=== PATIENT | female | born 1995 | race Caucasian/White ===

== ENCOUNTER 2022-01-21 17:11 | Emergency (ER) | payer MEDICAID, OTHER, SELFPAY ==
[2022-01-21 18:28] LABS: #Eosinphils 0.4 thou/uL (0.0-0.7); #Monocytes 0.4 thou/uL (0.11-0.59); #Neutrophils 3.1 thou/uL (1.40-6.50); %Basophils 0.6 % (0.0-1.0); %Eosinophils 7.5 % (0.0-10.0); %Lymphocytes 33.6 % (21.0-51.0); %Neutrophils 52.2 % (42.0-75.0); Hemoglobin 13.6 g/dL (12.0-16.0); Mean Corpuscular HGB CONC 33.1 g/dL (32.0-36.0); Mean Corpuscular Hemoglobin 28.7 pg (27.0-31.0); Mean Corpuscular Volume 86.8 fL (78.0-98.0); Mean Platelet Volume 8.7 fL (7.4-10.4); Platelet Count 216 thou/uL (130-400); RBC Distribution Width 12.7 % (11.5-14.5); Red Blood Cell (RBC) Count 4.73 mill/uL (4.20-5.40); White Blood Cell (WBC) Count 5.9 thou/uL (4.8-10.8)
[2022-01-21 18:38] LABS: BHCG - Serum Negative (NEGATIVE); Pregs Control Background? CLEAR/WHITE (CLR/WHITE); Pregs Control Bar Appear? YES (CONTROL BAR)
[2022-01-21 18:50] LABS: ALT (SGPT) 9 U/L (8-55); AST (SGOT) 14 U/L (5-34); Albumin 3.9 g/dL (3.5-5.0); Alkaline Phosphatase 104 U/L (40-110); Anion Gap 12 mmol/L (10-20); BUN (Urea Nitrogen) 9 mg/dL (7.0-18.7); Bilirubin, Total 0.2 mg/dL (0.2-1.2); Calc. Creatinine Clearance 0 mL/min (70-130); Calcium 8.7 mg/dL (7.8-10.44); Carbon Dioxide 24 mmol/L (22-29); Chloride 107 mmol/L (98-107); Globulin 2.6 g/dL (2.4-3.5); Glucose 88 mg/dL (70-105); Potassium 3.7 mmol/L (3.5-5.1); Protein, Total 6.5 g/dL (6.0-8.3); Sodium 139 mmol/L (136-145)
[2022-01-21 18:51] LABS: Acetaminophen Less than 10.0 mcg/mL (10.0-30.0); Alcohol Less than 10 mg/dL (Less than 10); CK (CPK) 187 U/L (29-168); Salicylate Less than 8.0 mg/dL (15.0-30.0)
[2022-01-21] MEDS ORDERED: Ketorolac Tromethamine 30 MG/ML VIAL ONE (19:32)
== END 2022-01-21 19:47 | disposition home or self-care (01) ==
LOC: ERS 17:11
DX: R51.9 Headache, unspecified (principal); R42 Dizziness and giddiness
CPT/HCPCS: 36415; 70450; 80053; 80307; 82550; 83605; 84703; 85025; 96374; J1885

== ENCOUNTER 2022-01-23 22:10 | Inpatient (IN) | payer OTHER ==
[2022-01-24 02:18] VITALS: BMI 29.7
[2022-01-24] MEDS ORDERED: Ondansetron PF 4 MG/2 ML Vial IVP PRN (02:52)
[2022-01-24] MEDS ORDERED: Ondansetron ODT 4 MG TAB PO PRN (02:52)
[2022-01-24] MEDS ORDERED: Acetaminophen 650 MG Suppository PR PRN (02:52)
[2022-01-24 05:55] LABS: #Basophils 0.1 thou/uL (0.0-0.2); #Eosinphils 0.4 thou/uL (0.0-0.7); #Lymphocytes 2.4 thou/uL (1.20-3.40); #Monocytes 0.4 thou/uL (0.11-0.59); #Neutrophils 2.2 thou/uL (1.40-6.50); %Eosinophils 8.1 % (0.0-10.0); %Lymphocytes 43.7 % (21.0-51.0); %Monocytes 6.9 % (0.0-10.0); %Neutrophils 40.3 % (42.0-75.0); Hemoglobin 14.1 g/dL (12.0-16.0); Mean Corpuscular HGB CONC 33.8 g/dL (32.0-36.0); Mean Corpuscular Hemoglobin 29.6 pg (27.0-31.0); Mean Corpuscular Volume 87.6 fL (78.0-98.0); Mean Platelet Volume 8.5 fL (7.4-10.4); Platelet Count 252 thou/uL (130-400); RBC Distribution Width 12.8 % (11.5-14.5); Red Blood Cell (RBC) Count 4.76 mill/uL (4.20-5.40); White Blood Cell (WBC) Count 5.6 thou/uL (4.8-10.8)
[2022-01-24 06:16] LABS: Anion Gap 10 mmol/L (10-20); BUN (Urea Nitrogen) 14 mg/dL (7.0-18.7); Calc. Creatinine Clearance 151 mL/min (70-130); Calcium 8.8 mg/dL (7.8-10.44); Carbon Dioxide 23 mmol/L (22-29); Chloride 105 mmol/L (98-107); Glucose 83 mg/dL (70-105); Potassium 3.7 mmol/L (3.5-5.1); Sodium 134 mmol/L (136-145)
[2022-01-24] MEDS: lamoTRIgine 25 MG TAB PO SCH (09:06)
[2022-01-24] MEDS: Escitalopram Oxalate 20 mg Tablet PO SCH (09:06)
[2022-01-24] MEDS ORDERED: Magnevist 469MG/ML 20 ML VIAL ONE (10:10)
[2022-01-24] MEDS ORDERED: Permethrin 5% Cream 60 GM TUBE TOP SCH ×2 (10:45→18:15)
[2022-01-24] MEDS ORDERED: Lorazepam 2 MG/ML VIAL SLOW IVP SCH (11:52)
[2022-01-24] MEDS ORDERED: Lorazepam 2 MG/ML VIAL ONE (11:55)
[2022-01-24] MEDS: Acetaminophen 325 MG TAB PO PRN (12:37)
[2022-01-24] MEDS ORDERED: Lorazepam 2 MG/ML VIAL SLOW IVP PRN (12:46)
[2022-01-24] MEDS ORDERED: Lice Shampoo 120 ML BOT TOP SCH (19:45)
[2022-01-25 00:05] LABS: ALT (SGPT) 9 U/L (8-55); AST (SGOT) 16 U/L (5-34); Albumin 4.2 g/dL (3.5-5.0); Alkaline Phosphatase 103 U/L (40-110); Anion Gap 12 mmol/L (10-20); BUN (Urea Nitrogen) 15 mg/dL (7.0-18.7); Bilirubin, Total 0.3 mg/dL (0.2-1.2); CK (CPK) 133 U/L (29-168); Calc. Creatinine Clearance 141 mL/min (70-130); Calcium 9.3 mg/dL (7.8-10.44); Carbon Dioxide 24 mmol/L (22-29); Chloride 105 mmol/L (98-107); Globulin 2.8 g/dL (2.4-3.5); Glucose 95 mg/dL (70-105); Sodium 137 mmol/L (136-145)
[2022-01-25 03:08] LABS: Free T4 (Free Thyroxine) 0.88 ng/dL (0.70-1.48)
[2022-01-25 06:32] LABS: Anion Gap 10 mmol/L (10-20); BUN (Urea Nitrogen) 14 mg/dL (7.0-18.7); Calc. Creatinine Clearance 149 mL/min (70-130); Carbon Dioxide 22 mmol/L (22-29); Chloride 105 mmol/L (98-107); Glucose 85 mg/dL (70-105); Potassium 4.1 mmol/L (3.5-5.1); Sodium 133 mmol/L (136-145)
[2022-01-25] MEDS: lamoTRIgine 25 MG TAB PO SCH (08:02)
[2022-01-25] MEDS: Escitalopram Oxalate 20 mg Tablet PO SCH (08:02)
[2022-01-25] MEDS: Acetaminophen 325 MG TAB PO PRN (09:01)
[2022-01-25 11:30] LABS: Bilirubin Negative (Negative); Blood, Urine Negative (Negative); Clarity Clear (Clear); Glucose, Urine (Dipstick) Normal (Negative); Ketone, Urine Negative (Negative); Leukocyte 25 Leu/uL (Negative); Nitrite Negative (Negative); Protein, Urine (Dipstick) Negative (Neg-Trace); RBC/HPF 0-3 HPF (0-3); Specific Gravity, Urine 1.025 (1.002-1.036); Squamous Epithelial 0-3 HPF (0-3); Urobilinogen Normal mg/dL (Less than 2); WBC/HPF 0-3 HPF (0-3); pH, Urine 6.5 (5.0-9.0)
[2022-01-25 11:31] LABS: Bacteria/HPF Rare-Few HPF (None Seen); Urine Culture Reflex Yes Yes
[2022-01-25 11:50] VITALS: BP 126/68; TEMP 98.8
[2022-01-25 12:19] LABS: Creatinine, Urine 105.06 mg/dL (47-110)
== END 2022-01-25 14:25 | disposition home or self-care (01) | DRG 880 ==
LOC: NEURO 22:10 → OBSVTOIN 01-24 13:08
PROVIDERS: ADMIT Internal Medicine; ATTEND Internal Medicine
DX: F44.5 Conversion disorder with seizures or convulsions (principal); E87.1 Hypo-osmolality and hyponatremia; Z20.822 Contact with and (suspected) exposure to COVID-19; F41.9 Anxiety disorder, unspecified; F31.9 Bipolar disorder, unspecified; B85.0 Pediculosis due to Pediculus humanus capitis; G43.909 Migraine, unspecified, not intractable, without status migrainosus; Z88.1 Allergy status to other antibiotic agents; Z79.899 Other long term (current) drug therapy; Z98.890 Other specified postprocedural states
CPT/HCPCS: 36415; 70553; 80048; 81001; 82533; 82550; 82570; 83930; 83935; 84300; 84439; 84481; 84540; 85025; 87086; 95712; 95819; 95957; 96374; A9579; G0378; J2060